=== PATIENT | female | born 1940 | race Caucasian/White ===

== ENCOUNTER 2016-07-28 10:54 | Observation (INO) ==
--- NOTE | 2016-07-28 11:34 | Emergency Department Note ---
Disposition Clinical Impression: Ataxia, Dizziness, Anxiety Disposition: Admitted As Inpatient General Adult HPI - General Chief complaint: ED Dizziness Stated complaint: Dizzy/Vertigo Time Seen by Provider: 07/28/16 11:31 Source: patient Limitations: no limitations - History of Present Illness HPI Narrative: 76-year-old female reports to the emergency department complaining of dizziness. She has a history of vertigo and usually takes medicine for that but the medicine did not help today. She reports this feels different. She was unable to walk well unable to stand up. She did not pass out or fall down. There is no history of weakness or numbness in the arms or legs no bowel or bladder problems no dysarthria or confusion or seizure. The patient has had no unilateral peripheral or lower extremity weakness. There is no history of fever headache neck stiffness or rash. The patient denies any chest pain shortness of breath or abdominal pain no vomiting or diarrhea. There is no history of acute back pain. No coughing runny nose or ear pain or sore throat. There is no history of urinary symptoms. She does describe chronic anxiety, she is not sure whether this is contributory or not. There is no history of depressive features or homicidality or suicidality. Onset (ago): hour(s) Pain Scale: 0 - Related Data Allergies Allergy/AdvReac Type Severity Reaction Status Date / Time Oxycodone [From Percocet] Allergy Gastrointestinal Verified 07/28/16 11:06 Upset IVP dye Allergy Diarrhea Uncoded 07/28/16 11:06 All systems ED: reviewed and negative except as stated. Past Medical History - Past Medical History Medical history: Reports: hypertension Psychiatric history: Reports: no psych history - Social History Smoking Status: Current every day smoker Smokeless Tobacco Status: No Alcohol use: Reports: none Drug use: Reports: none Physical Exam - General Limitations: no limitations General appearance: alert - Head Head exam: atraumatic, normocephalic, normal inspection - Eye Eye exam: Present: normal appearance, PERRL, EOMI. Absent: scleral icterus, conjunctival injection, miosis, mydriasis - ENT ENT exam: normal exam, normal oropharynx, mucous membranes moist, TM's normal bilaterally, normal external ear exam - Neck Neck exam: Present: normal inspection, full ROM, trachea midline - Chest Chest inspection: Present: symmetric chest wall rise. Absent: tenderness - Respiratory Respiratory exam: Present: normal lung sounds bilaterally. Absent: respiratory distress - Cardiovascular Cardiovascular exam: Present: regular rate, normal rhythm, normal heart sounds - Abdominal Exam Abdominal exam: Present: soft, Non-Tender. Absent: tenderness, distention, guarding, rebound, rigidity - Extremities Exam Extremities exam: Present: normal inspection, full ROM, normal capillary refill. Absent: tenderness, pedal edema, joint swelling, calf tenderness - Expanded Lower Extremity Exam Hip/Pelvis exam: Present: full ROM. Absent: tenderness Upper leg exam: Present: full ROM. Absent: tenderness Knee exam: Present: full ROM. Absent: tenderness Lower leg exam: Present: full ROM. Absent: tenderness Ankle exam: Present: full ROM. Absent: tenderness Foot/toe exam: Present: full ROM. Absent: tenderness Neurovascular/Tendon exam: Absent: motor deficit, sensory deficit, tendon deficit - Back Exam Back exam: Present: normal inspection, full ROM. Absent: tenderness, CVA tenderness (R), CVA tenderness (L), vertebral tenderness - Neurological Exam Neurological exam: Present: alert, oriented X3, CN II-XII intact. Absent: motor sensory deficit - Psychiatric Psychiatric exam: Present: normal affect, normal mood - Skin Skin exam: Present: warm, dry, intact, normal color. Absent: rash, cyanosis, diaphoresis, erythema, pallor, mottled Course Vital Signs Temperature 97.9 F 07/28/16 11:00 Pulse Rate 70 07/28/16 11:00 Respiratory Rate 18 07/28/16 11:00 Blood Pressure 180/77 07/28/16 11:00 O2 Sat by Pulse Oximetry 99 07/28/16 11:00 Temperature 97.9 F 07/28/16 11:00 Pulse Rate 75 07/28/16 14:00 Respiratory Rate 14 07/28/16 14:00 Blood Pressure 110/70 07/28/16 14:00 O2 Sat by Pulse Oximetry 95 07/28/16 14:00 Oxygen Delivery Oxygen Delivery Room Air Medical Decision Making - [facility] Narrative Medical decision making narrative: The patient's testing here is essentially negative. She states she has a history of vertigo and takes medication for that but the medication was not effective this morning. She feels there is a change in her dizziness because she can't walk. She does not necessarily describe head motion related When we tried to get her to go to the bathroom, she had to be held up by 2 people to walk. We brought her back to the ED bed and we attempted to ambulate her after a period of time, we helped her stand up, and when we she attempted to take a step forward she fell immediately to the right she was caught and did not hit the ground. The patient appears to be unable to walk properly. Cerebellar disease could be considered. The patient was given aspirin. I consulted with the hospitalist on-call who is in the emergency department evaluating the patient. An MRI series has been ordered to evaluate for vascular disease. - Lab Data Lab results reviewed: Yes I reviewed the patient's lab results. Result diagrams: 07/28/16 12:29 07/28/16 12:29 Lab Results 07/28/16 07/28/16 07/28/16 Range/Units 12:05 12:29 12:29 WBC 5.8 (4.3-11.1) K/mcL RBC 4.66 (3.82-4.97) M/mcL Hgb 13.7 (11.5-15.4) g/dL Hct 41.0 (35.3-44.9) % MCV 88.0 (83.0-100.0) fL MCH 29.4 (28.0-33.3) pg MCHC 33.4 (31.6-35.5) g/dL RDW 13.1 (11.5-14.5) % Plt Count 275 (140-400) K/mcL MPV 10.6 (9.4-12.4) fL Immature Gran % 0.3 (0-4) % Seg Neutrophils % 70.6 % Lymphocytes % 21.4 % Monocytes % 6.7 % Eosinophils % 0.3 % Basophils % 0.7 % Neutrophils # 4.1 (1.6-8.9) K/mcL Lymphocytes # 1.3 (0.6-4.6) K/mcL Monocytes # 0.4 (0.0-1.3) K/mcL Eosinophils # 0.0 (0.0-0.6) K/mcL Basophils # 0.0 (0.0-0.2) K/mcL PT (9.4-12.1) Seconds INR APTT (26.0-36.0) Seconds Sodium 141 (136-145) mEq/L Potassium 3.6 (3.5-4.5) mEq/L Chloride 106 (98-109) mEq/L Carbon Dioxide 27 (19-29) mEq/L BUN 10 (7-20) mg/dL Creatinine 0.74 (0.57-1.11) mg/dL Est GFR ( Amer) > 60 (> 60) Est GFR (Non-Af Amer) > 60 (> 60) BUN/Creatinine Ratio 14 (6-26) Glucose 115 H (70-99) mg/dL Calculated Osmolality 292 (280-300) Lactic Acid (0.5-2.2) mmol/L Calcium 10.4 (8.6-10.8) mg/dL Total Bilirubin 0.4 (0.2-1.2) mg/dL Direct Bilirubin 0.1 (0.0-0.5) mg/dL Indirect Bilirubin 0.3 (0.0-1.2) mg/dL AST 19 (5-34) Units/L ALT 14 (0-55) Units/L Alkaline Phosphatase 46 (38-126) Units/L Troponin I (0-0.03) ng/mL C-Reactive Protein 2 (Less than 5) mg/L Serum Total Protein 7.0 (6.0-8.3) g/dL Albumin 4.1 (3.5-5.0) g/dL Globulin 2.9 (2.4-3.5) g/dL Albumin/Globulin Ratio 1.4 (1.1-2.2) Urine Color Yellow (Yellow) Urine Clarity Clear (Clear) Urine pH 8.0 (5.0-8.0) pH Units Ur Specific [place] < 1.005 L (1.010-1.025) Urine Protein Negative (Neg-Trace) mg/dL Urine Glucose (UA) Normal (Normal) mg/dL Urine Ketones Negative (Negative) mg/dL Urine Blood Negative (Negative) Urine Nitrite Negative (Negative) Urine Bilirubin Negative (Negative) Urine Urobilinogen Normal (Normal) mg/dL Ur Leukocyte Esterase Trace H (Negative) Urine Microscopic RBC 3-5 H (0-3) per hpf Urine Microscopic WBC 0-3 (0-3) per hpf Ur Squamous Epith Cells Few (None-Few) per lpf Urine Bacteria None Seen (None-Few) per hpf Hyaline Casts None Seen (None-Few) per lpf Ur Culture Indicated? YES A (NO) 07/28/16 07/28/16 07/28/16 Range/Units 12:29 12:29 12:29 WBC (4.3-11.1) K/mcL RBC (3.82-4.97) M/mcL Hgb (11.5-15.4) g/dL Hct (35.3-44.9) % MCV (83.0-100.0) fL MCH (28.0-33.3) pg MCHC (31.6-35.5) g/dL RDW (11.5-14.5) % Plt Count (140-400) K/mcL MPV (9.4-12.4) fL Immature Gran % (0-4) % Seg Neutrophils % % Lymphocytes % % Monocytes % % Eosinophils % % Basophils % % Neutrophils # (1.6-8.9) K/mcL Lymphocytes # (0.6-4.6) K/mcL Monocytes # (0.0-1.3) K/mcL Eosinophils # (0.0-0.6) K/mcL Basophils # (0.0-0.2) K/mcL PT 11.3 (9.4-12.1) Seconds INR 1.0 APTT 29.8 (26.0-36.0) Seconds Sodium (136-145) mEq/L Potassium (3.5-4.5) mEq/L Chloride (98-109) mEq/L Carbon Dioxide (19-29) mEq/L BUN (7-20) mg/dL Creatinine (0.57-1.11) mg/dL Est GFR ( Amer) (> 60) Est GFR (Non-Af Amer) (> 60) BUN/Creatinine Ratio (6-26) Glucose (70-99) mg/dL Calculated Osmolality (280-300) Lactic Acid 0.9 (0.5-2.2) mmol/L Calcium (8.6-10.8) mg/dL Total Bilirubin (0.2-1.2) mg/dL Direct Bilirubin (0.0-0.5) mg/dL Indirect Bilirubin (0.0-1.2) mg/dL AST (5-34) Units/L ALT (0-55) Units/L Alkaline Phosphatase (38-126) Units/L Troponin I 0.01 (0-0.03) ng/mL C-Reactive Protein (Less than 5) mg/L Serum Total Protein (6.0-8.3) g/dL Albumin (3.5-5.0) g/dL Globulin (2.4-3.5) g/dL Albumin/Globulin Ratio (1.1-2.2) Urine Color (Yellow) Urine Clarity (Clear) Urine pH (5.0-8.0) pH Units Ur Specific [place] (1.010-1.025) Urine Protein (Neg-Trace) mg/dL Urine Glucose (UA) (Normal) mg/dL Urine Ketones (Negative) mg/dL Urine Blood (Negative) Urine Nitrite (Negative) Urine Bilirubin (Negative) Urine Urobilinogen (Normal) mg/dL Ur Leukocyte Esterase (Negative) Urine Microscopic RBC (0-3) per hpf Urine Microscopic WBC (0-3) per hpf Ur Squamous Epith Cells (None-Few) per lpf Urine Bacteria (None-Few) per hpf Hyaline Casts (None-Few) per lpf Ur Culture Indicated? (NO) - Radiology Data Radiology results reviewed: Yes I reviewed the patient's radiology results.
[2016-07-28 12:38] LABS: Basophils % 0.7 %; Eosinophils % 0.3 %; Hemoglobin 13.7 g/dL (11.5-15.4); Immature Granulocytes % 0.3 % (0-4); Lymphocytes # 1.3 K/mcL (0.6-4.6); Lymphocytes % 21.4 %; Mean Corpuscular HGB Conc 33.4 g/dL (31.6-35.5); Mean Corpuscular Hemoglobin 29.4 pg (28.0-33.3); Mean Platelet Volume 10.6 fL (9.4-12.4); Monocytes # 0.4 K/mcL (0.0-1.3); Monocytes % 6.7 %; Neutrophils # 4.1 K/mcL (1.6-8.9); Platelet Count 275 K/mcL (140-400); Red Blood Count 4.66 M/mcL (3.82-4.97); Red Cell Distribution Width 13.1 % (11.5-14.5); Segmented Neutrophils % 70.6 %
[2016-07-28 12:44] LABS: Prothrombin Time 11.3 Seconds (9.4-12.1)
[2016-07-28 12:46] LABS: Activated Partial Thrombo Time 29.8 Seconds (26.0-36.0)
[2016-07-28 12:52] LABS: Alanine Aminotransferase 14 Units/L (0-55); Albumin 4.1 g/dL (3.5-5.0); Albumin/Globulin Ratio 1.4 (1.1-2.2); Alkaline Phosphatase 46 Units/L (38-126); Aspartate Amino Transferase 19 Units/L (5-34); BUN/Creatinine Ratio 14 (6-26); Bilirubin,Direct 0.1 mg/dL (0.0-0.5); Bilirubin,Indirect 0.3 mg/dL (0.0-1.2); Bilirubin,Total 0.4 mg/dL (0.2-1.2); Blood Urea Nitrogen 10 mg/dL (7-20); C-Reactive Protein 2 mg/L (Less than 5); Calcium 10.4 mg/dL (8.6-10.8); Carbon Dioxide 27 mEq/L (19-29); Chloride 106 mEq/L (98-109); Globulin 2.9 g/dL (2.4-3.5); Glucose 115 mg/dL (70-99); Osmolality,Calculated 292 (280-300); Potassium 3.6 mEq/L (3.5-4.5); Sodium 141 mEq/L (136-145); eGFR For African Americans > 60 (> 60); eGFR For Non-African Americans > 60 (> 60)
[2016-07-28 13:05] LABS: Bilirubin,Urine Negative (Negative); Blood,Urine Negative (Negative); Clarity,Urine Clear (Clear); Color,Urine Yellow (Yellow); Glucose,Urine (UA) Normal (Normal); Ketones,Urine Negative (Negative); Leukocyte Esterase,Urine Trace (Negative); Nitrite,Urine Negative (Negative); Protein,Urine Negative (Neg-Trace); Specific Gravity,Urine < 1.005 (1.010-1.025); Urobilinogen,Urine Normal (Normal)
[2016-07-28 13:08] LABS: Bacteria,Urine None Seen per hpf (None-Few); Hyaline Casts,Urine None Seen per lpf (None-Few); Squamous Epithelial Cell,Urine Few per lpf (None-Few); WBC,Urine 0-3 per hpf (0-3)
[2016-07-28] MEDS ORDERED: Aspirin 325 MG TABLET PO ONE (14:26)
[2016-07-28] MEDS ORDERED: Ondansetron 4 MG/2 ML VIAL IVP PRN (14:53)
[2016-07-28] MEDS ORDERED: *HR* Morphine 2 MG/ML SYRINGE IVP PRN (14:53)
[2016-07-28] MEDS ORDERED: Acetaminophen 325 MG TABLET PO PRN (14:53)
[2016-07-28] MEDS ORDERED: Naloxone 0.4 MG/ML INJ IVP PRN (14:53)
[2016-07-28] MEDS ORDERED: Ipratropium/Albuterol Neb 3 ML IH PRN (14:55)
--- NOTE | 2016-07-28 14:58 | Internal Med History&Physical ---
Date of Encounter: 07/28/16 Time of Encounter: 14:56 Assessment and Plan (1) Vertigo Current visit: Yes Status: Acute Persistent vertigo, consider possible CVA Ordering MRI, continue aspirin, echocardiogram, telemetry Fall precautions, meclizine as needed If the MRI is negative the patient may be able to be discharged in the morning Check lipid panel, Lipitor (2) Hypertension Current visit: Yes Status: Acute Qualifiers: Hypertension type: essential hypertension Qualified Code(s): I10 - Essential (primary) hypertension (3) Tobacco abuse Current visit: Yes Status: Acute Smoking cessation counseling given for 5 minutes Nicotine patch ordered (4) GERD (gastroesophageal reflux disease) Current visit: Yes Status: Acute Famotidine for GI prophylaxis and subcutaneous heparin for DVT prophylaxis. Patient will be admitted for observation. She is a full code. Time spent on this admission 40 minutes. She is high risk for falling. Physical therapy consult Qualifiers: Esophagitis presence: without esophagitis Qualified Code(s): K21.9 - Gastro -esophageal reflux disease without esophagitis (5) Anxiety Current visit: Yes Status: Acute Internal Medicine - H&P: HPI Chief complaint: Severe dizziness Admitted From: Emergency Dept History of present illness: Ms. Banks is a 76 year old female with a past medical history of smoking, hypertension and vertigo in the past. The patient comes complaining of severe dizziness that started at 9 AM and has not been able to recover from these even by taking as needed doses of meclizine. The patient had a CT scan of the head that was unremarkable. Was feeling better while being in the ER but when she stood up she almost fell again and is feeling slightly dizzy on and off. The patient denies any numbness or other complaints. No recent infections no sick contacts or traveling. No history of strokes. She was feeling nauseous in the morning but denies any nausea at the moment. Past Med Surg Social Fam HX - Past Medical History Medical history: hypertension, other (Vertigo, tobacco use, GERD) Psychiatric history: no psych history - Past Surgical History Surgical History: other (Partial colectomy for unclear reasons, the patient does not remember the details) - Social History Smoking Status: Current every day smoker Packs per day: Half a pack Smokeless Tobacco Status: No Alcohol use: none Drug use: none - Additional Family History Additional family history: Denies any family history Internal Medicine - H&P: Meds Allergies Oxycodone [From Percocet] Allergy (Verified 07/28/16 11:06) Gastrointestinal Upset IVP dye Allergy (Uncoded 07/28/16 11:06) Diarrhea All Systems PM: A 10-system review of systems was performed and is negative for pertinent findings except as documented above in the HPI. Review of systems: Denies any headache, no neck rigidity, measures of breath or chest pain. Other systems out of the 10 reviewed were negative - Constitutional Vitals: Temp Pulse Resp BP Pulse Ox 97.9 F 75 14 110/70 95 07/28/16 11:00 07/28/16 14:00 07/28/16 14:00 07/28/16 14:00 07/28/16 14:00 General appearance: Present: A&O X 3 - Head Head exam: Present: atraumatic, normocephalic - Eye Eye exam: Present: PERRL, conjuntiva pink, sclera anicteric Pupils: Present: PERRL - Neck Neck exam general surgery: Present: supple, trachea midline. Absent: lymphadenopathy - Respiratory Respiratory exam: Present: CTAB. Absent: accessory muscle use, rales, rhonchi, wheezes - Cardiovascular Cardiovascular exam: Present: RRR, +S1, +S2. Absent: diastolic murmur, gallop, rubs, systolic murmur - GI/Abdominal GI/Abdominal exam: Present: normal bowel sounds, soft, no peritoneal signs. Absent: distended, tenderness - Extremities Exam Extremities exam: Present: warm, radial pulses palpable and symetrical. Absent : calf tenderness, cyanotic, pedal edema - Neurological Exam Neurological exam: Present: CN II-XII intact, oriented X3, no focal deficits. Absent: pronater drift, facial droop, speech deficit Additional comments: Mild persistent dizziness. No diplopia, no nystagmus - Skin Skin exam: Present: dry, intact Internal Med - H&P Results - Labs CBC & Chem 7: 07/28/16 12:29 07/28/16 12:29
[2016-07-28] MEDS: Aspirin 81 MG TAB.CHEW PO SCH (17:34)
[2016-07-28] MEDS: *HR* Heparin 5,000 UNIT/ML VIAL SQ SCH (17:57)
[2016-07-28] MEDS: 0.9 % Sodium Chloride 1,000 ML IVC SCH (17:57)
[2016-07-28] MEDS: Famotidine 20 MG TABLET PO SCH (20:16)
[2016-07-29] MEDS: *HR* Heparin 5,000 UNIT/ML VIAL SQ SCH ×2 (00:10→08:35)
[2016-07-29 05:49] LABS: BUN/Creatinine Ratio 18 (6-26); Blood Urea Nitrogen 13 mg/dL (7-20); Carbon Dioxide 26 mEq/L (19-29); Chloride 109 mEq/L (98-109); Chol/HDL Ratio 3.4 (0-4.9); Cholesterol 212 mg/dL (< 200); Glucose 85 mg/dL (70-99); HDL Cholesterol 63 mg/dL (40-59); LDL Cholesterol,Calculated 135 mg/dL (0-99); Osmolality,Calculated 295 (280-300); Potassium 3.9 mEq/L (3.5-4.5); Sodium 143 mEq/L (136-145); Triglycerides 71 mg/dL (< 150); eGFR For African Americans > 60 (> 60); eGFR For Non-African Americans > 60 (> 60)
[2016-07-29] MEDS: Aspirin 81 MG TAB.CHEW PO SCH (08:35)
[2016-07-29] MEDS: 0.9 % Sodium Chloride 1,000 ML IVC SCH (08:36)
[2016-07-29] MEDS: Famotidine 20 MG TABLET PO SCH (08:36)
[2016-07-29] MEDS ORDERED: Nicotine 21 MG PATCH.TD24 TD SCH (09:00)
--- NOTE | 2016-07-29 09:38 | Electrocardiograph Report ---
[facility] Test Date: 2016-07-28 Pat Name: Ana Rosa Banks Department: 103 Room: 3B32 Gender: F Manager Performance Improvement: ЕКАТЕРИНА : 1940 Requested By: Nick Onofre Order Number: [id number] Reading MD: Jc Ortega MD Measurements Intervals [place] Rate: 62 P: 35 ME: 146 QRS: 12 QRSD: 91 T: 30 QT: 404 QTc: 410 Interpretive Statements SINUS RHYTHM Electronically Signed On 07-29-16 09:37:08 EST by Jc Ortega MD
--- NOTE | 2016-07-29 10:10 | ECHO - Doppler Report ---
Echo with Saline Contrast Name: Ana Rosa Banks Date of Study: 07/28/2016 Date: 1940 Ht: 62.0 in Medical Record#: [id number] Age: 76 Wt: 124.0 lb Gender: Female BSA: 1.56 Order #: [id number] Location: [facility] Room #: 3B32 Reading Physician: Lucia Nichols DO Stock Checker: Pamela Gomes Ordering Physician: Edson Merchant MD Primary Physician: Katja Rasmussen MD Indications: Vertigo, r/o CVA Impressions: LVEF 50-55%. There is evidence of mild diastolic dysfunction of the left ventricle. Normal right ventricular size and function. Mild aortic regurgitation. Mild mitral regurgitation. Mild tricuspid regurgitation. Mild pulmonic regurgitation. No pulmonary hypertension. There is evidence of a PFO with agitated saline contrast and an aneurysmal interatrial septum. Aortic root upper limits of normal for BSA. Left Ventricular Wall Motion: Rest Echo Findings The mid anterior septal and mid inferior lateral schafer were not visualized. All other wall segments showed normal motion. Findings: Study Quality * Technically adequate exam. ECG Findings * Normal sinus rhythm. Left Ventricle * Normal LV chamber size, wall thickness and function. * Mild left ventricular diastolic dysfunction. * LVEF 50-55%. Aortic Valve * Trileaflet aortic valve. * Normal aortic valve structure. * No aortic stenosis. * Mild aortic regurgitation. Mitral Valve * Mild mitral regurgitation. * Normal mitral valve structure. * No mitral stenosis. Tricuspid Valve * Normal tricuspid valve structure. * Mild tricuspid regurgitation. * Estimated RA pressure is 3 mmHg. * Estimated RVSP is 23 mmHg. * No pulmonary hypertension. Pulmonic Valve * Pulmonic valve is not well visualized. * No pulmonic stenosis. * Mild pulmonic regurgitation. Pulmonary Artery * Pulmonary artery not well visualized. Right Ventricle * Normal right ventricular structure and function. Left Atrium * Normal left atrial size. Right Atrium * Normal right atrial size. Interatrial Septum * Aneurysmal interatrial septal. * There is a PFO by agitated saline contrast, IVC * Normal IVC dimensions and inspiratory collapse. Pericardium * There is no pericardial effusion present. Aorta * Aortic root size upper limits of normal for BSA. History Hypertension History of Smoking Years 15 Packs 0.5 . a Previous Echo was performed. Measurements: BP: 142/ 72 2D Normal Values IVSd: 1.20 cm 0.6 - 1.0 cm LVIDd: 3.70 cm 3.7 - 5.6 cm LVPWd: 1.00 cm 0.6 - 1.1 cm LVIDs: 2.70 cm 1.5 - 3.6 cm AO: 3.30 cm < 4.0 cm LA: 3.00 cm 2.0 - 4.0cm %FS: 27.00 cm >25 % LA volume: 50 Mitral Valve Peak E:.36 m/sec Peak A:.67 m/sec E/A Ratio:0.5 Peak E' Lat Benjy:8.29 cm/s Peak E' Med Benjy:4 cm/s E/E' Lat Ratio:4.3 E/E' Med Ratio:9 Tricuspid Valve TV Regurg Peak Grad: 20.00mmHg TV Regurg Peak Benjy: 2.26m/sec Updated by Lucia Nichols on 07/29/2016 10:00:36 AM electronically signed on 07/29/2016 10:05:15 AM with status of Final Wall Motion Cl[place]: 1=Normal, 2=Hypokinesis, 3=Akinesis, 4=Dyskinesis, 5=Aneurysmal, 6=Hyperkinetic, X=Not Visualized (Blank)=Missing
--- NOTE | 2016-07-29 11:53 | Discharge Summary ---
Date of Encounter: 07/29/16 Time of Encounter: 10:30 - Discharge Diagnosis (1) Interatrial septal aneurysm with PFO Priority: Primary Status: Acute Comments: As identified on Echo. Spoke to cardiology (2) Anxiety Priority: Secondary Status: Chronic Comments: mood and affect appropriate while admitted. (3) Ataxia Priority: Primary Status: Resolved Comments: Upright and steady gait noted. PT without recommendations. (4) Dizziness Priority: Primary Status: Resolved (5) GERD (gastroesophageal reflux disease) Priority: Secondary Status: Chronic Comments: Denies current symptoms, follow-up outpatient Qualifiers: Esophagitis presence: without esophagitis Qualified Code(s): K21.9 - Gastro -esophageal reflux disease without esophagitis (6) Hypertension Priority: Secondary Status: Chronic Comments: Controlled, follow-up outpatient Qualifiers: Hypertension type: essential hypertension Qualified Code(s): I10 - Essential (primary) hypertension (7) Tobacco abuse Priority: Secondary Status: Chronic Comments: Declined counseling (8) Vertigo Priority: Primary Status: Resolved (9) Dyslipidemia Priority: Primary Status: Acute Comments: Abnormal lipid profile, started on a statin and recommended low-cholesterol diet. - Discharge Medications Prescriptions: Aspirin 81 mg PO DAILY #30 tab.chew Atorvastatin [Lipitor] 40 mg PO HS #30 tablet Home Medications: Calcium Carbonate [Calcium] 600 mg PO DAILY 07/28/16 [History] Cholecalciferol (D-3) [Vitamin D] 1,000 unit PO DAILY 07/28/16 [History] Cyanocobalamin (Vitamin B-12) [Vitamin B12] 1,000 mcg PO DAILY 07/28/16 [History ] Meclizine HCl [Verticalm] 25 mg PO TID PRN 07/28/16 [History] Metoprolol [Lopressor] 25 mg PO BID 07/28/16 [History] Multivitamin [One Daily Essential] 1 tab PO DAILY 07/28/16 [History] Ranitidine HCl [Zantac] 300 mg PO DAILY 07/28/16 [History] Aspirin 81 mg PO DAILY #30 tab.chew 07/29/16 [Rx] Atorvastatin [Lipitor] 40 mg PO HS #30 tablet 07/29/16 [Rx] Allergies/Adverse Reactions: Allergies Oxycodone [From Percocet] Allergy (Verified 07/28/16 11:06) Gastrointestinal Upset IVP dye Allergy (Uncoded 07/28/16 11:06) Diarrhea Procedures/tests Complete & Pending: Procedures Performed prior 72 hours Category Date Time Status MR angio head wo con [MR] Stat MRI 07/28/16 14:37 Completed MR angio neck wo/w con [MR] Stat MRI 07/28/16 14:37 Completed MR head/brain wo con [MR] Stat MRI 07/28/16 14:34 Completed EV echocardiogram Routine Y 07/28/16 14:55 Completed Date of admission: 07/28/16 14:33 Primary care physician: Katja Hameed Consults: 07/28/16 15:02 Consult to Physical Therapy [CONS] Routine Comment: Evaluate, develop and implement POC Consult to Health Information Director [CONS] Routine Reason for SW Consult: . Discharging clinician: Kayla Do Anticipated date of discharge: 07/29/16 - Patient Status Disposition: Home, Self-Care Condition: Good Functional capacity at discharge: independent ambulation Overall status at discharge: patient is back to baseline - Discharge Instructions Follow Up With: Katja Rasmussen MD [Primary Care Provider] - [facility] [Provider Group] Additional Instructions: Follow-up with primary care provider in one to 2 weeks, follow-up with cardiology in 2-3 weeks - Diet and Activity Activity: increase activity as tolerated, resume usual activities as tolerated Diet: low fat, low cholesterol, low salt diet Hospital course: Ms. Banks is a 76 year old female with past medical history of tobacco abuse, hypertension, vertigo. Patient presented to the emergency room chief complaint severe dizziness that started on the morning of presentation that had not been abated with her home doses of meclizine. Workup in the emergency department unremarkable except for an abnormal urinalysis. Chest x-ray negative. Head CT negative. Brain MRI negative for acute processes. Head and neck MRAs both unremarkable. Patient was admitted to the hospitalist service for further evaluation and management. Patient was asymptomatic throughout this admission and had an upright and steady gait and denied dizziness. Urine culture was negative and patient denied dysuria. No leukocytosis or signs of infection. PT without recommendations. Echocardiogram did reveal a PFO with and aneurysmal interatrial septum. I spoke to cardiology Dr. Perez who recommended aspirin and following up outpatient and he added that this was unlikely to be a contributing factor to her dizziness and fall. Likely an incidental finding. For further risk factor stratification, she was started on a statin as her lipid profile was mildly abnormal. She was discharged home in stable condition with close outpatient follow-up. ITS Impressions Chest X-Ray 07/28/16 11:31 IMPRESSION: No acute cardiac or pulmonary disease. D/ / Pee Slater MD / Pee Slater MD Interpreting Provider: Pee Slater MD Head CT 07/28/16 11:31 IMPRESSION: No acute intracranial abnormality. D/ / Arjun Mejia MD / Arjun Mejia MD Interpreting Provider: Arjun Mejia MD Brain MRI 07/28/16 14:34 IMPRESSION: 1. No acute intracranial abnormality. 2. Mild chronic white matter microvascular ischemic changes. 3. Normal MRA of the head. D/ / Eyad Davis MD / Eyad Davis MD Interpreting Provider: Eyad Davis MD Head MRA 07/28/16 14:37 IMPRESSION: 1. No acute intracranial abnormality. 2. Mild chronic white matter microvascular ischemic changes. 3. Normal MRA of the head. D/ / Eyad Davis MD / Eyad Davis MD Interpreting Provider: Eyad Davis MD Neck MRA 07/28/16 14:37 IMPRESSION: 1. Bilateral internal carotid artery origin stenosis, moderate on the right and mild on the left. 2. Normal vertebral arteries. D/ / Eyad Davis MD / Eyad Davis MD Interpreting Provider: Eyad Davis MD Echocardiogram with saline contrast impressions: LVEF 50-55%. There is evidence of mild diastolic dysfunction of the left ventricle. Normal right ventricular size and function. Mild aortic regurgitation. Mild mitral regurgitation. Mild tricuspid regurgitation. Mild pulmonic regurgitation. No pulmonary hypertension. There is evidence of PFO with agitated saline contrast with an aneurysmal interatrial septum. Aortic root upper limits of normal for BSA. - Time Spent with Patient Total time spent providing and/or coordinating discharge services: - Constitutional Vitals: Temp Pulse Resp BP Pulse Ox 98.4 F 65 16 117/74 95 07/29/16 08:02 07/29/16 08:02 07/29/16 08:02 07/29/16 08:02 07/29/16 08:02 General appearance: Present: A&O X 3, pleasant, no acute distress - Head Head exam: Present: atraumatic, normocephalic - Eye Eye exam: Present: PERRL, conjuntiva pink, sclera anicteric Pupils: Present: PERRL - Neck Neck exam general surgery: Present: supple, trachea midline. Absent: lymphadenopathy - Respiratory Respiratory exam: Present: CTAB. Absent: accessory muscle use, rales, respiratory distress, rhonchi, wheezes - Cardiovascular Cardiovascular exam: Present: RRR, +S1, +S2. Absent: diastolic murmur, gallop, rubs, systolic murmur - GI/Abdominal GI/Abdominal exam: Present: normal bowel sounds, soft, no peritoneal signs. Absent: distended, tenderness - Extremities Exam Extremities exam: Present: warm, radial pulses palpable and symetrical. Absent : calf tenderness, cyanotic, pedal edema - Neurological Exam Neurological exam: Present: alert, CN II-XII intact, normal gait, oriented X3, no focal deficits, strengths equal and symetr throughout. Absent: pronater drift, facial droop, speech deficit - Skin Skin exam: Present: dry, intact, normal color, warm
[2016-07-29 12:13] VITALS: BP 132/78
== END 2016-07-29 12:33 | disposition home or self-care (01) ==
LOC: 3BNU 10:54 → EMEROO 10:54 → 3BNU 16:11
PROVIDERS: ADMIT Nurse Practitioner Family; ATTEND Nurse Practitioner Family

== ENCOUNTER 2020-11-16 10:47 | Inpatient (IN) ==
[2020-11-16] MEDS ORDERED: 0.9 % Sodium Chloride 1,000 ML IVC ONE (11:17)
[2020-11-16] MEDS ORDERED: Isovue-370 500 ML BOTTLE IVP ONE (11:17)
[2020-11-16] MEDS ORDERED: Ondansetron 4 MG/2 ML VIAL IVP ONE (11:17)
[2020-11-16 11:31] LABS: Basophils # 0.1 K/mcL (0.0-0.2); Basophils % 0.6 %; Eosinophils # 0.1 K/mcL (0.0-0.6); Eosinophils % 0.9 %; Hematocrit 38.4 % (35.3-44.9); Hemoglobin 12.3 g/dL (11.5-15.4); Immature Granulocytes % 0.6 % (0-4); Lymphocytes # 1.3 K/mcL (0.6-4.6); Lymphocytes % 14.2 %; Mean Corpuscular Hemoglobin 29.4 pg (28.0-33.3); Mean Corpuscular Volume 91.9 fL (83.0-100.0); Mean Platelet Volume 9.9 fL (9.4-12.4); Monocytes # 0.7 K/mcL (0.0-1.3); Monocytes % 8.2 %; Neutrophils # 6.7 K/mcL (1.6-8.9); Platelet Count 252 K/mcL (140-400); Red Blood Count 4.18 M/mcL (3.82-4.97); Red Cell Distribution Width 14.3 % (11.5-14.5); Segmented Neutrophils % 75.5 %; White Blood Count 8.9 K/mcL (4.3-11.1)
[2020-11-16] MEDS ORDERED: Famotidine 20 MG/2 ML VIAL IVP ONE (11:37)
[2020-11-16] MEDS ORDERED: Prochlorperazine 10 MG/2 ML VIAL IVP PRN (12:01)
[2020-11-16 13:03] LABS: Alanine Aminotransferase 17 Units/L (7-52); Albumin 3.7 g/dL (3.5-5.7); Albumin/Globulin Ratio 1.5 (1.1-2.2); Alkaline Phosphatase 50 Units/L (34-104); Aspartate Amino Transferase 19 Units/L (13-39); BUN/Creatinine Ratio 21 (6-26); Bilirubin,Direct 0.1 mg/dL (0.0-0.2); Bilirubin,Indirect 0.5 mg/dL (0.0-1.0); Bilirubin,Total 0.6 mg/dL (0.3-1.0); Blood Urea Nitrogen 15 mg/dL (8-23); Calcium 8.5 mg/dL (8.6-10.3); Carbon Dioxide 23 mEq/L (23-29); Chloride 107 mEq/L (98-107); Globulin 2.4 g/dL (2.4-3.5); Glucose 130 mg/dL (70-105); Lipase 14 Units/L (11-82); Osmolality,Calculated 293 (280-300); Potassium 3.3 mEq/L (3.5-5.1); Sodium 140 mEq/L (136-145); Total Protein 6.1 g/dL (6.4-8.9); Troponin I 0.03 ng/mL (< 0.04); eGFR For African Americans > 60 (> 60); eGFR For Non-African Americans > 60 (> 60)
[2020-11-16] MEDS ORDERED: *HR* LORazepam 2 MG/ML VIAL IVP ONE (13:12)
[2020-11-16 13:32] LABS: Bacteria,Urine Few per hpf (None-Few); Bilirubin,Urine Negative (Negative); Blood,Urine Small (Negative); Clarity,Urine Turbid (Clear); Color,Urine Light-Yellow (Yellow); Glucose,Urine (UA) Normal (Normal); Ketones,Urine Negative (Negative); Leukocyte Esterase,Urine Large (Negative); Mucus,Urine Few per lpf (None-Few); Nitrite,Urine Negative (Negative); PH,Urine 7.5 pH Units (5.0-8.0); Protein,Urine Trace mg/dL (Neg-Trace); Specific Gravity,Urine 1.012 (1.010-1.025); Squamous Epithelial Cell,Urine Few per hpf (None-Few); Urobilinogen,Urine Normal (Normal); WBC,Urine 15-30 per hpf (0-3)
[2020-11-16] MEDS ORDERED: Haloperidol Lactate 5 MG/ML VIAL IVP ONE (15:07)
[2020-11-16] MEDS ORDERED: cefTRIAXone 1,000 MG in Water for inj. (sterile) 10 ML IVP ONE (15:26)
[2020-11-16] MEDS ORDERED: Acetaminophen 325 MG TABLET PO PRN (16:04)
[2020-11-16] MEDS ORDERED: Ondansetron 4 MG/2 ML VIAL IVP PRN (16:04)
[2020-11-16] MEDS ORDERED: Melatonin 3 MG TABLET PO PRN (16:04)
[2020-11-16] MEDS ORDERED: *HR* Promethazine 25 MG/ML VIAL IM PRN (16:04)
[2020-11-16] MEDS ORDERED: Mag Hydrox/Al Hydrox/Simeth 30 ML UDC PO PRN (16:04)
[2020-11-16] MEDS ORDERED: Naloxone 0.4 MG/ML INJ IVP PRN (16:04)
[2020-11-16 16:30] LABS: Magnesium 1.7 mg/dL (1.6-2.6)
[2020-11-16] MEDS ORDERED: Potassium Chloride 20 MEQ, Lidocaine 1% 2 ML in 0.9 % Sodium Chloride 250 ML IVPB ONE (16:55)
[2020-11-16] MEDS: Pantoprazole 40 MG VIAL IVP SCH (17:26)
[2020-11-16] MEDS ORDERED: Aspirin Enteric Coated 325 MG Tablet PO ONE (22:30)
[2020-11-16] MEDS ORDERED: Perflutren Lipid Microsphere 1.3 ML in 0.9 % Sodium Chloride 8.7 ML IVP PRN (22:31)
[2020-11-16] MEDS ORDERED: Acetaminophen IV 1,000 MG/100 ML BAG IVPB ONE (23:29)
[2020-11-16] MEDS ORDERED: 0.9 % Sodium Chloride 1,000 ML IVC SCH (23:30)
[2020-11-17] MEDS ORDERED: Prochlorperazine 10 MG/2 ML VIAL IVP PRN (01:29)
[2020-11-17 05:48] LABS: Hematocrit 35.8 % (35.3-44.9); Hemoglobin 11.2 g/dL (11.5-15.4); Mean Corpuscular HGB Conc 31.3 g/dL (31.6-35.5); Mean Corpuscular Hemoglobin 29.6 pg (28.0-33.3); Mean Corpuscular Volume 94.7 fL (83.0-100.0); Mean Platelet Volume 9.7 fL (9.4-12.4); Platelet Count 211 K/mcL (140-400); Red Blood Count 3.78 M/mcL (3.82-4.97); Red Cell Distribution Width 14.5 % (11.5-14.5)
[2020-11-17] MEDS: Pantoprazole 40 MG VIAL IVP SCH ×2 (06:25→16:42)
[2020-11-17 06:42] LABS: BUN/Creatinine Ratio 14 (6-26); Blood Urea Nitrogen 9 mg/dL (8-23); Carbon Dioxide 22 mEq/L (23-29); Chloride 106 mEq/L (98-107); Glucose 106 mg/dL (70-105); Osmolality,Calculated 283 (280-300); Potassium 3.7 mEq/L (3.5-5.1); Sodium 137 mEq/L (136-145); eGFR For African Americans > 60 (> 60); eGFR For Non-African Americans > 60 (> 60)
[2020-11-17] MEDS ORDERED: Aspirin Enteric Coated 81 MG Tablet PO SCH (09:00)
[2020-11-17] MEDS ORDERED: cefTRIAXone 1,000 MG in Water for inj. (sterile) 10 ML IVP SCH (16:00)
[2020-11-17] MEDS: hydrOXYzine pamoate 25 MG CAPSULE PO PRN (16:03)
[2020-11-17] MEDS ORDERED: *HR* LORazepam 2 MG/ML VIAL IVP ONE (17:55)
[2020-11-18] MEDS ORDERED: *HR* LORazepam 2 MG/ML VIAL IVP ONE (02:24)
[2020-11-18] MEDS: Pantoprazole 40 MG VIAL IVP SCH ×2 (03:39→18:23)
[2020-11-18 05:13] LABS: Hematocrit 37.6 % (35.3-44.9); Hemoglobin 11.8 g/dL (11.5-15.4); Mean Corpuscular HGB Conc 31.4 g/dL (31.6-35.5); Mean Corpuscular Hemoglobin 29.7 pg (28.0-33.3); Mean Corpuscular Volume 94.7 fL (83.0-100.0); Mean Platelet Volume 9.6 fL (9.4-12.4); Platelet Count 233 K/mcL (140-400); Red Blood Count 3.97 M/mcL (3.82-4.97); Red Cell Distribution Width 14.5 % (11.5-14.5); White Blood Count 8.5 K/mcL (4.3-11.1)
[2020-11-18 05:32] LABS: BUN/Creatinine Ratio 15 (6-26); Blood Urea Nitrogen 9 mg/dL (8-23); Calcium 7.9 mg/dL (8.6-10.3); Carbon Dioxide 26 mEq/L (23-29); Chloride 109 mEq/L (98-107); Chol/HDL Ratio 3.6 (0-4.9); Cholesterol 253 mg/dL (< 200); Glucose 92 mg/dL (70-105); HDL Cholesterol 71 mg/dL (40-59); LDL Cholesterol,Calculated 170 mg/dL (< 100); Osmolality,Calculated 290 (280-300); Potassium 3.3 mEq/L (3.5-5.1); Sodium 141 mEq/L (136-145); Triglycerides 61 mg/dL (< 150); eGFR For African Americans > 60 (> 60); eGFR For Non-African Americans > 60 (> 60)
[2020-11-18 05:44] LABS: Estimated Average Glucose 123 mg/dl; Hemoglobin A1C 5.9 %
[2020-11-18] MEDS: PARoxetine 20 MG TABLET PO SCH (08:23)
[2020-11-18] MEDS: Aspirin 325 MG TABLET PO SCH (08:23)
[2020-11-18] MEDS ORDERED: QUEtiapine Fumarate 25 MG TABLET PO PRN (13:27)
[2020-11-18] MEDS: hydrOXYzine pamoate 25 MG CAPSULE PO PRN (15:16)
[2020-11-18] MEDS: *HR* Heparin 5,000 UNIT/ML VIAL SQ SCH ×2 (18:23→18:34)
[2020-11-19 05:31] LABS: BUN/Creatinine Ratio 22 (6-26); Blood Urea Nitrogen 14 mg/dL (8-23); Carbon Dioxide 23 mEq/L (23-29); Chloride 110 mEq/L (98-107); Glucose 92 mg/dL (70-105); Magnesium 2.2 mg/dL (1.6-2.6); Osmolality,Calculated 290 (280-300); Phosphorous 1.1 mg/dL (2.7-4.5); Potassium 3.9 mEq/L (3.5-5.1); Sodium 140 mEq/L (136-145); eGFR For African Americans > 60 (> 60); eGFR For Non-African Americans > 60 (> 60)
[2020-11-19] MEDS: *HR* Heparin 5,000 UNIT/ML VIAL SQ SCH ×2 (06:04→17:22)
[2020-11-19] MEDS: Pantoprazole 40 MG VIAL IVP SCH ×2 (06:05→17:24)
[2020-11-19] MEDS: Aspirin 325 MG TABLET PO SCH (12:13)
[2020-11-19] MEDS: QUEtiapine Fumarate 25 MG TABLET PO SCH ×2 (12:14→21:19)
[2020-11-19] MEDS: PARoxetine 20 MG TABLET PO SCH (12:15)
[2020-11-19] MEDS ORDERED: Haloperidol Lactate 5 MG/ML VIAL IM ONE (20:58)
[2020-11-20] MEDS: Pantoprazole 40 MG VIAL IVP SCH (06:05)
[2020-11-20] MEDS: *HR* Heparin 5,000 UNIT/ML VIAL SQ SCH ×2 (06:05→16:06)
[2020-11-20] MEDS: hydrOXYzine pamoate 25 MG CAPSULE PO PRN ×3 (08:17→21:50)
[2020-11-20] MEDS: PARoxetine 20 MG TABLET PO SCH (08:17)
[2020-11-20] MEDS: QUEtiapine Fumarate 25 MG TABLET PO SCH ×2 (08:17→21:51)
[2020-11-20] MEDS: Aspirin 325 MG TABLET PO SCH (08:17)
[2020-11-21 02:37] LABS: Magnesium 2.2 mg/dL (1.6-2.6); Phosphorous 1.9 mg/dL (2.7-4.5)
[2020-11-21] MEDS: *HR* Heparin 5,000 UNIT/ML VIAL SQ SCH (06:22)
[2020-11-21] MEDS: QUEtiapine Fumarate 25 MG TABLET PO SCH (08:52)
[2020-11-21] MEDS: Aspirin 325 MG TABLET PO SCH (08:52)
[2020-11-21] MEDS: PARoxetine 20 MG TABLET PO SCH (08:53)
[2020-11-21] MEDS ORDERED: lisinopriL 5 MG TABLET PO SCH (09:00)
[2020-11-21 10:50] LABS: Adenovirus Not Detected (Not Detect); Bordetella Pertussis Not Detected (Not Detect); Chlamydophila pneumoniae Not Detected (Not Detect); Coronavirus 229E Not Detected (Not Detect); Coronavirus HKU1 Not Detected (Not Detect); Coronavirus NL63 Not Detected (Not Detect); Coronavirus OC43 Not Detected (Not Detect); Human Metapneumovirus Not Detected (Not Detect); Human Rhinovirus/Enterovirus Not Detected (Not Detect); Influenza A Subtype 2009 H1 Not Detected (Not Detect); Influenza B Not Detected (Not Detect); Mycoplasma pneumoniae Not Detected (Not Detect); Parainfluenza Virus 1 Not Detected (Not Detect); Parainfluenza Virus 2 Not Detected (Not Detect); Parainfluenza Virus 3 Not Detected (Not Detect); Parainfluenza Virus 4 Not Detected (Not Detect); Respiratory Syncytial Virus Not Detected (Not Detect); SARS-CoV-2 Not Detected (Not Detect)
[2020-11-21 11:02] VITALS: BP 145/73
== END 2020-11-21 13:32 | DRG 64 ==
LOC: 3BNU 10:47 → EMEROOARM 10:47 → SUATTDRO 16:35 → 3BNU 17:14 → SUATTDRO 11-17 08:01
PROVIDERS: ADMIT Family Medicine; ATTEND Internal Medicine

== ENCOUNTER 2020-11-24 17:28 | Observation (INO) ==
[2020-11-24] MEDS ORDERED: 0.9 % Sodium Chloride 1,000 ML IVC ONE (18:25)
[2020-11-24 18:47] LABS: Basophils # 0.1 K/mcL (0.0-0.2); Basophils % 0.6 %; Eosinophils # 0.2 K/mcL (0.0-0.6); Eosinophils % 2.8 %; Hematocrit 36.3 % (35.3-44.9); Hemoglobin 11.7 g/dL (11.5-15.4); Immature Granulocytes % 0.6 % (0-4); Lymphocytes # 1.3 K/mcL (0.6-4.6); Lymphocytes % 16.4 %; Mean Corpuscular HGB Conc 32.2 g/dL (31.6-35.5); Mean Corpuscular Hemoglobin 29.9 pg (28.0-33.3); Mean Corpuscular Volume 92.8 fL (83.0-100.0); Mean Platelet Volume 10.5 fL (9.4-12.4); Monocytes % 12.7 %; Neutrophils # 5.2 K/mcL (1.6-8.9); Platelet Count 232 K/mcL (140-400); Red Blood Count 3.91 M/mcL (3.82-4.97); Red Cell Distribution Width 14.3 % (11.5-14.5); Segmented Neutrophils % 66.9 %; White Blood Count 7.8 K/mcL (4.3-11.1)
[2020-11-24 19:00] LABS: Bilirubin,Urine Negative (Negative); Blood,Urine Moderate (Negative); Calcium Oxalate Crystals,Urine Present per hpf; Clarity,Urine Ex.Turbid (Clear); Color,Urine Yellow (Yellow); Glucose,Urine (UA) Normal (Normal); Hyaline Casts,Urine Many per lpf (None Seen); Ketones,Urine Negative (Negative); Leukocyte Esterase,Urine Moderate (Negative); Mucus,Urine Many per lpf (None-Few); Nitrite,Urine Negative (Negative); Protein,Urine 100 mg/dL (Neg-Trace); RBC,Urine TNTC per hpf (0-3); Renal Epithelial Cells,Urine Few per hpf (None-Few); Specific Gravity,Urine 1.028 (1.010-1.025); Squamous Epithelial Cell,Urine Few per hpf (None-Few); WBC,Urine 50-100 per hpf (0-3)
[2020-11-24 19:08] LABS: Alanine Aminotransferase 36 Units/L (7-52); Albumin 3.7 g/dL (3.5-5.7); Albumin/Globulin Ratio 1.5 (1.1-2.2); Alkaline Phosphatase 74 Units/L (34-104); Aspartate Amino Transferase 50 Units/L (13-39); BUN/Creatinine Ratio 20 (6-26); Bilirubin,Direct 0.1 mg/dL (0.0-0.2); Bilirubin,Indirect 0.6 mg/dL (0.0-1.0); Bilirubin,Total 0.7 mg/dL (0.3-1.0); Blood Urea Nitrogen 14 mg/dL (8-23); Calcium 8.9 mg/dL (8.6-10.3); Carbon Dioxide 24 mEq/L (23-29); Chloride 106 mEq/L (98-107); Globulin 2.4 g/dL (2.4-3.5); Glucose 101 mg/dL (70-105); Osmolality,Calculated 291 (280-300); Potassium 3.3 mEq/L (3.5-5.1); Sodium 140 mEq/L (136-145); Total Protein 6.1 g/dL (6.4-8.9); Troponin I 0.03 ng/mL (< 0.04); eGFR For African Americans > 60 (> 60); eGFR For Non-African Americans > 60 (> 60)
[2020-11-24] MEDS ORDERED: cefTRIAXone 1,000 MG in Water for inj. (sterile) 10 ML IVP ONE (20:31)
[2020-11-24] MEDS ORDERED: Melatonin 3 MG TABLET PO PRN (21:44)
[2020-11-24] MEDS ORDERED: Acetaminophen 325 MG TABLET PO PRN (21:44)
[2020-11-24] MEDS ORDERED: Ondansetron 4 MG/2 ML VIAL IVP PRN (21:44)
[2020-11-24] MEDS ORDERED: Naloxone 0.4 MG/ML INJ IVP PRN (21:44)
[2020-11-24] MEDS: QUEtiapine Fumarate 25 MG TABLET PO SCH (23:25)
[2020-11-25] MEDS ORDERED: Haloperidol Lactate 5 MG/ML VIAL IM ONE ×3 (02:16→22:15)
[2020-11-25] MEDS ORDERED: hydrOXYzine pamoate 25 MG CAPSULE PO PRN (02:27)
[2020-11-25 07:07] LABS: Basophils % 0.6 %; Eosinophils # 0.3 K/mcL (0.0-0.6); Hematocrit 32.3 % (35.3-44.9); Hemoglobin 10.3 g/dL (11.5-15.4); Immature Granulocytes % 0.6 % (0-4); Lymphocytes # 1.3 K/mcL (0.6-4.6); Lymphocytes % 18.5 %; Mean Corpuscular HGB Conc 31.9 g/dL (31.6-35.5); Mean Corpuscular Hemoglobin 29.6 pg (28.0-33.3); Mean Corpuscular Volume 92.8 fL (83.0-100.0); Mean Platelet Volume 10.2 fL (9.4-12.4); Monocytes % 13.9 %; Neutrophils # 4.3 K/mcL (1.6-8.9); Platelet Count 189 K/mcL (140-400); Red Blood Count 3.48 M/mcL (3.82-4.97); Red Cell Distribution Width 14.4 % (11.5-14.5); Segmented Neutrophils % 62.4 %; White Blood Count 6.9 K/mcL (4.3-11.1)
[2020-11-25 07:25] LABS: BUN/Creatinine Ratio 18 (6-26); Blood Urea Nitrogen 10 mg/dL (8-23); Carbon Dioxide 25 mEq/L (23-29); Chloride 111 mEq/L (98-107); Glucose 84 mg/dL (70-105); Magnesium 1.6 mg/dL (1.6-2.6); Osmolality,Calculated 292 (280-300); Potassium 3.7 mEq/L (3.5-5.1); Sodium 142 mEq/L (136-145); eGFR For African Americans > 60 (> 60); eGFR For Non-African Americans > 60 (> 60)
[2020-11-25] MEDS: Multivit/Ca/Min/Fe/FA 1 TAB TABLET PO SCH (08:45)
[2020-11-25] MEDS: QUEtiapine Fumarate 25 MG TABLET PO SCH ×2 (08:45→20:41)
[2020-11-25] MEDS: cefTRIAXone 1,000 MG in Water for inj. (sterile) 10 ML IVP SCH (08:46)
[2020-11-25] MEDS: PARoxetine 20 MG TABLET PO SCH (08:46)
[2020-11-25] MEDS: Aspirin 325 MG TABLET PO SCH (08:46)
[2020-11-26 06:03] LABS: Basophils # 0.1 K/mcL (0.0-0.2); Eosinophils # 0.3 K/mcL (0.0-0.6); Eosinophils % 3.7 %; Hematocrit 34.5 % (35.3-44.9); Hemoglobin 11.3 g/dL (11.5-15.4); Immature Granulocytes % 0.4 % (0-4); Lymphocytes # 1.4 K/mcL (0.6-4.6); Lymphocytes % 19.1 %; Mean Corpuscular HGB Conc 32.8 g/dL (31.6-35.5); Mean Corpuscular Hemoglobin 29.8 pg (28.0-33.3); Mean Platelet Volume 11.1 fL (9.4-12.4); Monocytes # 0.9 K/mcL (0.0-1.3); Monocytes % 12.9 %; Neutrophils # 4.4 K/mcL (1.6-8.9); Platelet Count 228 K/mcL (140-400); Red Blood Count 3.79 M/mcL (3.82-4.97); Red Cell Distribution Width 14.4 % (11.5-14.5); Segmented Neutrophils % 62.9 %; White Blood Count 7.1 K/mcL (4.3-11.1)
[2020-11-26 06:32] LABS: BUN/Creatinine Ratio 16 (6-26); Blood Urea Nitrogen 8 mg/dL (8-23); Calcium 8.1 mg/dL (8.6-10.3); Carbon Dioxide 22 mEq/L (23-29); Chloride 109 mEq/L (98-107); Glucose 99 mg/dL (70-105); Magnesium 1.8 mg/dL (1.6-2.6); Osmolality,Calculated 286 (280-300); Phosphorous 2.2 mg/dL (2.7-4.5); Potassium 3.6 mEq/L (3.5-5.1); Sodium 139 mEq/L (136-145); eGFR For African Americans > 60 (> 60); eGFR For Non-African Americans > 60 (> 60)
[2020-11-26] MEDS ORDERED: *HR* Metoprolol 5 MG/5 ML VIAL IVP ONE (06:50)
[2020-11-26] MEDS: cefTRIAXone 1,000 MG in Water for inj. (sterile) 10 ML IVP SCH (07:34)
[2020-11-26] MEDS: Multivit/Ca/Min/Fe/FA 1 TAB TABLET PO SCH (07:36)
[2020-11-26] MEDS: QUEtiapine Fumarate 25 MG TABLET PO SCH (07:36)
[2020-11-26] MEDS: Aspirin 325 MG TABLET PO SCH (07:36)
[2020-11-26] MEDS: PARoxetine 20 MG TABLET PO SCH (07:36)
[2020-11-26 11:49] VITALS: BP 153/61
== END 2020-11-26 12:31 ==
LOC: EMEROOARM 17:28 → 3BNU 17:28 → SUATTDRO 20:53 → 3BNU 21:36
PROVIDERS: ADMIT Family Medicine; ATTEND Internal Medicine

== ENCOUNTER 2020-12-05 12:43 | Inpatient (IN) ==
[2020-12-05 13:33] LABS: Basophils # 0.1 K/mcL (0.0-0.2); Basophils % 0.9 %; Eosinophils # 0.4 K/mcL (0.0-0.6); Eosinophils % 5.2 %; Hematocrit 34.3 % (35.3-44.9); Hemoglobin 11.2 g/dL (11.5-15.4); Immature Granulocytes % 0.9 % (0-4); Lymphocytes # 1.2 K/mcL (0.6-4.6); Lymphocytes % 17.9 %; Mean Corpuscular HGB Conc 32.7 g/dL (31.6-35.5); Mean Corpuscular Hemoglobin 30.5 pg (28.0-33.3); Mean Corpuscular Volume 93.5 fL (83.0-100.0); Mean Platelet Volume 10.2 fL (9.4-12.4); Monocytes # 0.8 K/mcL (0.0-1.3); Monocytes % 11.1 %; Neutrophils # 4.4 K/mcL (1.6-8.9); Platelet Count 261 K/mcL (140-400); Red Blood Count 3.67 M/mcL (3.82-4.97); Red Cell Distribution Width 13.9 % (11.5-14.5); White Blood Count 6.9 K/mcL (4.3-11.1)
[2020-12-05 13:41] LABS: INR 1.1; Prothrombin Time 12.8 Seconds (9.4-12.1)
[2020-12-05 13:44] LABS: Activated Partial Thrombo Time 25.4 Seconds (26.0-36.0)
[2020-12-05 14:13] LABS: Alanine Aminotransferase 32 Units/L (7-52); Albumin 3.7 g/dL (3.5-5.7); Albumin/Globulin Ratio 1.5 (1.1-2.2); Alkaline Phosphatase 81 Units/L (34-104); Aspartate Amino Transferase 29 Units/L (13-39); BUN/Creatinine Ratio 23 (6-26); Bilirubin,Direct 0.1 mg/dL (0.0-0.2); Bilirubin,Indirect 0.5 mg/dL (0.0-1.0); Bilirubin,Total 0.6 mg/dL (0.3-1.0); Blood Urea Nitrogen 16 mg/dL (8-23); Calcium 9.2 mg/dL (8.6-10.3); Carbon Dioxide 27 mEq/L (23-29); Chloride 106 mEq/L (98-107); Ethanol < 10 mg/dL (Less than 10); Globulin 2.4 g/dL (2.4-3.5); Glucose 99 mg/dL (70-105); Osmolality,Calculated 293 (280-300); Potassium 3.7 mEq/L (3.5-5.1); Sodium 141 mEq/L (136-145); Total Protein 6.1 g/dL (6.4-8.9); Troponin I < 0.03 ng/mL (< 0.04); eGFR For African Americans > 60 (> 60); eGFR For Non-African Americans > 60 (> 60)
[2020-12-05 14:37] LABS: Amphetamine Screen,Urine Negative ng/mL (Cutoff=1000); Barbiturate Screen,Urine Negative ng/mL (Cutoff=200); Benzodiazepines Screen,Urine Negative ng/mL (Cutoff=200); Cannabinoid Screen,Urine Negative ng/mL (Cutoff = 50); Cocaine Screen,Urine Negative ng/mL (Cutoff= 300); Opiate Screen,Urine Negative ng/mL (Cutoff=300); Phencyclidine Screen,Urine Negative ng/mL (Cutoff=25)
[2020-12-05 15:04] LABS: Bacteria,Urine Few per hpf (None-Few); Bilirubin,Urine Negative (Negative); Blood,Urine Negative (Negative); Budding Yeast,Urine Many per hpf (None Seen); Clarity,Urine Ex.Turbid (Clear); Color,Urine Yellow (Yellow); Glucose,Urine (UA) Normal (Normal); Ketones,Urine Negative (Negative); Leukocyte Esterase,Urine Trace (Negative); Mucus,Urine Many per lpf (None-Few); Nitrite,Urine Negative (Negative); Protein,Urine 70 mg/dL (Neg-Trace); RBC,Urine 50-100 per hpf (0-3); Renal Epithelial Cells,Urine Few per hpf (None-Few); Specific Gravity,Urine 1.028 (1.010-1.025); Transitional Epi Cells,Urine Few per hpf (None-Few); Urobilinogen,Urine Normal (Normal); WBC,Urine 30-50 per hpf (0-3)
[2020-12-05] MEDS ORDERED: cefTRIAXone 1,000 MG in Water for inj. (sterile) 10 ML IVP ONE (15:36)
[2020-12-05] MEDS ORDERED: Ondansetron ODT 4 MG TAB.RAPDIS SL PRN (16:38)
[2020-12-05] MEDS ORDERED: Mag Hydrox/Al Hydrox/Simeth 30 ML UDC PO PRN (16:38)
[2020-12-05] MEDS ORDERED: MOM Conc 10 ML UD.LIQ PO PRN (16:38)
[2020-12-05] MEDS ORDERED: Naloxone 0.4 MG/ML INJ IVP PRN (16:38)
[2020-12-05] MEDS ORDERED: Isovue-370 500 ML BOTTLE IVP ONE (16:41)
[2020-12-05 17:46] LABS: Folate 18.4 ng/mL (3.0-16.0)
[2020-12-05 17:47] LABS: Vitamin B12 384 pg/mL (250-1100)
[2020-12-06] MEDS: QUEtiapine Fumarate 25 MG TABLET PO SCH ×3 (00:10→21:24)
[2020-12-06] MEDS: *HR* Enoxaparin 40 MG/0.4 ML SYRINGE SQ SCH (05:26)
[2020-12-06 05:51] LABS: Hematocrit 38.7 % (35.3-44.9); Hemoglobin 11.8 g/dL (11.5-15.4); Mean Corpuscular HGB Conc 30.5 g/dL (31.6-35.5); Mean Corpuscular Hemoglobin 29.4 pg (28.0-33.3); Mean Corpuscular Volume 96.3 fL (83.0-100.0); Mean Platelet Volume 10.4 fL (9.4-12.4); Platelet Count 253 K/mcL (140-400); Red Blood Count 4.02 M/mcL (3.82-4.97); Red Cell Distribution Width 13.6 % (11.5-14.5); White Blood Count 8.1 K/mcL (4.3-11.1)
[2020-12-06 06:05] LABS: Alanine Aminotransferase 32 Units/L (7-52); Albumin 3.7 g/dL (3.5-5.7); Albumin/Globulin Ratio 1.5 (1.1-2.2); Alkaline Phosphatase 76 Units/L (34-104); Aspartate Amino Transferase 31 Units/L (13-39); BUN/Creatinine Ratio 22 (6-26); Bilirubin,Total 0.5 mg/dL (0.3-1.0); Blood Urea Nitrogen 13 mg/dL (8-23); Calcium 8.8 mg/dL (8.6-10.3); Carbon Dioxide 24 mEq/L (23-29); Chloride 107 mEq/L (98-107); Globulin 2.4 g/dL (2.4-3.5); Glucose 84 mg/dL (70-105); Osmolality,Calculated 291 (280-300); Potassium 3.4 mEq/L (3.5-5.1); Sodium 141 mEq/L (136-145); Total Protein 6.1 g/dL (6.4-8.9); eGFR For African Americans > 60 (> 60); eGFR For Non-African Americans > 60 (> 60)
[2020-12-06] MEDS: cefTRIAXone 1,000 MG in 0.9 % Sodium Chloride Mini Bag 100 ML IVPB SCH (08:07)
[2020-12-06] MEDS: Aspirin 325 MG TABLET PO SCH (08:07)
[2020-12-06] MEDS ORDERED: Thiamine (B-1) 100 MG in 0.9 % Sodium Chloride 50 ML IVPB STA (17:45)
[2020-12-06] MEDS ORDERED: QUEtiapine Fumarate 25 MG TABLET PO SCH (21:00)
[2020-12-06] MEDS ORDERED: *HR* LORazepam 2 MG/ML VIAL IVP ONE (22:07)
[2020-12-07] MEDS: *HR* Enoxaparin 40 MG/0.4 ML SYRINGE SQ SCH (06:09)
[2020-12-07] MEDS ORDERED: NON-FORMULARY MEDICATION 1 EACH EACH (Atorvastatin Calcium [Lipitor] 80 MG Tablet) PO SCH (09:00)
[2020-12-07] MEDS: cefTRIAXone 1,000 MG in 0.9 % Sodium Chloride Mini Bag 100 ML IVPB SCH (10:09)
[2020-12-07] MEDS: Cyanocobalamin (B-12) 1,000 MCG TABLET PO SCH (10:11)
[2020-12-07] MEDS: Aspirin 325 MG TABLET PO SCH (10:11)
[2020-12-07] MEDS: Ascorbic Acid 500 MG TABLET PO SCH (10:12)
[2020-12-07] MEDS: FLUoxetine 20 MG CAPSULE PO SCH (10:12)
[2020-12-07] MEDS: QUEtiapine Fumarate 25 MG TABLET PO SCH (20:14)
[2020-12-08 01:01] LABS: Hematocrit 33.8 % (35.3-44.9); Mean Corpuscular HGB Conc 32.5 g/dL (31.6-35.5); Mean Corpuscular Hemoglobin 29.6 pg (28.0-33.3); Mean Corpuscular Volume 91.1 fL (83.0-100.0); Mean Platelet Volume 9.9 fL (9.4-12.4); Platelet Count 267 K/mcL (140-400); Red Blood Count 3.71 M/mcL (3.82-4.97); Red Cell Distribution Width 13.7 % (11.5-14.5)
[2020-12-08 01:01] LABS: VBG HCO3 25 mEq/L (21-27); VBG PCO2 37 mmHg (41-51); VBG PH 7.44 pH Units (7.32-7.42); VBG PO2 91 mmHg (25-50)
[2020-12-08 01:21] LABS: BUN/Creatinine Ratio 18 (6-26); Blood Urea Nitrogen 9 mg/dL (8-23); Calcium 7.9 mg/dL (8.6-10.3); Carbon Dioxide 24 mEq/L (23-29); Chloride 107 mEq/L (98-107); Glucose 102 mg/dL (70-105); Osmolality,Calculated 287 (280-300); Potassium 3.2 mEq/L (3.5-5.1); Sodium 139 mEq/L (136-145); eGFR For African Americans > 60 (> 60); eGFR For Non-African Americans > 60 (> 60)
[2020-12-08] MEDS: *HR* Enoxaparin 40 MG/0.4 ML SYRINGE SQ SCH (05:16)
[2020-12-08] MEDS: FLUoxetine 20 MG CAPSULE PO SCH (09:26)
[2020-12-08] MEDS: Aspirin 325 MG TABLET PO SCH (09:26)
[2020-12-08] MEDS: Ascorbic Acid 500 MG TABLET PO SCH (09:26)
[2020-12-08] MEDS: Cyanocobalamin (B-12) 1,000 MCG TABLET PO SCH (09:26)
[2020-12-08] MEDS: QUEtiapine Fumarate 25 MG TABLET PO SCH (20:16)
[2020-12-09] MEDS: *HR* Enoxaparin 40 MG/0.4 ML SYRINGE SQ SCH (05:11)
[2020-12-09] MEDS: Ascorbic Acid 500 MG TABLET PO SCH (09:12)
[2020-12-09] MEDS: FLUoxetine 20 MG CAPSULE PO SCH (09:12)
[2020-12-09] MEDS: Aspirin 325 MG TABLET PO SCH (09:12)
[2020-12-09] MEDS: Cyanocobalamin (B-12) 1,000 MCG TABLET PO SCH (09:12)
[2020-12-09] MEDS: Thiamine (B-1) 100 MG TABLET PO SCH (09:12)
[2020-12-09] MEDS: QUEtiapine Fumarate 25 MG TABLET PO SCH ×2 (09:13→19:47)
[2020-12-10] MEDS: *HR* Enoxaparin 40 MG/0.4 ML SYRINGE SQ SCH (05:16)
[2020-12-10] MEDS: Cyanocobalamin (B-12) 1,000 MCG TABLET PO SCH (09:57)
[2020-12-10] MEDS: FLUoxetine 20 MG CAPSULE PO SCH (09:57)
[2020-12-10] MEDS: Ascorbic Acid 500 MG TABLET PO SCH (09:57)
[2020-12-10] MEDS: Thiamine (B-1) 100 MG TABLET PO SCH (09:57)
[2020-12-10] MEDS: Aspirin 325 MG TABLET PO SCH (09:57)
[2020-12-10] MEDS: QUEtiapine Fumarate 25 MG TABLET PO SCH ×2 (09:57→22:38)
[2020-12-10] MEDS ORDERED: Haloperidol Lactate 5 MG/ML VIAL IVP STA (13:28)
[2020-12-10 20:00] VITALS: BP 158/74
== END 2020-12-10 23:53 | disposition short-term general hospital (02) | DRG 56 ==
LOC: 3ANU 12:43 → EMEROOARM 12:43 → SUATTDRO 20:23 → 3ANU 21:01
PROVIDERS: ADMIT Internal Medicine; ATTEND Internal Medicine